=== PATIENT | female | born 1975 | race Caucasian/White ===

== ENCOUNTER 2022-06-24 14:16 | Emergency (ER) | payer OTHER ==
[~2022-06-24] VITALS: Ht 162.6 cm; Wt 57.0 kg
[~2022-06-24 14:16] MED LIST: ABILIFY MAINTE300 MG; ABILIFY15 MG; ABILIFY30 MG OR; CRESTOR5 MG PO; FLOMAX0.4 M1 PO; HYDROXYZ HCL25 MG PO; INVEGA SUS1 IM; LORTAB5 PO; LOVASTATIN10 M1 PO; NO HOME MEDS; PERCOCET 5/325M1 TAB PO; PROZAC10 MG PO; RISPERDAL1 M1 PO; TEGRETOL OR; TORADOL PO; ULTRAM50 M1 PO; ZOFRAN4 M1 OR; [UNRECOGNIZED DRUG - REMARK]
[2022-06-24 15:23] LABS: HEMATOCRIT 38.7 % (37.0-47.0); HEMOGLOBIN 12.7 g/dl (12.0-16.0); IMMATURE GRANULOCYTES 0.4 % (0.0-5.0); MEAN CELL VOLUME 88.8 fL CALC (80.0-100.0); MEAN CORPUSCULAR HGB 29.1 pG CALC (26.0-32.0); MEAN CORPUSCULAR HGB CONC 32.8 g/dL CAL (32.0-36.0); NEUT# 6.24 thou/uL (2.00-7.15); RED BLOOD COUNT 4.36 mill/uL (4.20-5.60); RED CELL DISTRI WIDTH 12.7 % (11.5-15.5)
[2022-06-24 15:34] LABS: ALBUMIN 4.1 g/dL (3.2-5.0); ALKALINE PHOSPHATASE 85 u/l (38-126); ANION GAP 10 (6-22 (CALC)); BUN 7 mg/dL (7-17); BUN/CREATININE RATIO 7 (12-20 (CALC)); CARBON DIOXIDE 27 mmol/l (22-30); CHLORIDE 101 mmol/l (95-108); GFR FOR AFR.AMER. > 60 ML/MIN (>=60 (CALC)); GFR OTHER RACES 59 ML/MIN (>=60 (CALC)); POTASSIUM 3.5 mmol/l (3.5-5.1); SGOT/AST 22 u/l (14-36); SODIUM 134 mmol/l (137-146); TOTAL PROTEIN 6.8 g/dL (6.3-8.2)
[2022-06-24 15:37] LABS: BILIRUBIN, TOTAL 0.2 mg/dL (0.0-1.4)
[2022-06-24 16:15] VITALS: BP 148/109
== END 2022-06-24 16:21 | disposition left against medical advice (07) ==
LOC: ED 14:16
PROVIDERS: Family Medicine
DX: M54.6 Pain in thoracic spine (principal); F17.200 Nicotine dependence, unspecified, uncomplicated; Z53.29 Procedure and treatment not carried out because of patient's decision for other reasons

== ENCOUNTER 2022-07-06 09:56 | Emergency (ER) | payer OTHER ==
[~2022-07-06] VITALS: Ht 162.6 cm; Wt 57.2 kg
[2022-07-06 12:45] VITALS: BP 157/98
== END 2022-07-06 12:45 | disposition home or self-care (01) ==
LOC: ED 09:56
DX: M25.511 Pain in right shoulder (principal); F17.210 Nicotine dependence, cigarettes, uncomplicated